=== PATIENT | female | born 1960 | race Caucasian/White ===

== ENCOUNTER → 2017-06-18 | Outpatient (CLI) | payer BC ==
[2017-06-18 17:28] LABS: T4, Free (Free Thyroxine) 1.27 ng/dL (0.78-2.19)
--- NOTE | 2017-06-19 11:00 | US ---
EXAMINATION TYPE: US thyroid st tissue head/neck DATE OF EXAM: 06/18/2017 COMPARISON: NONE CLINICAL HISTORY: E04.2 MULTINODULAR GOITER. Pt states known nodules, previous scans done at outside facility GLAND SIZE: Right Lobe: 7.4 x 2.1 x 2.5 cm Overall Parenchyma: heterogenous Left Lobe: 4.5 x 1.0 x 1.8 cm Overall Parenchyma: homogeneous Isthmus Thickness: 0.2 cm NODULES RIGHT: # of nodules measured on right: 4 1. 5.4 X 2.7 x 4.1 cm cystic nodule at the lower pole with well-defined margins;. This nodule is w ider than tall and shows no intranodular vascularity. Prior size: No prior 2. 1.8 X 0.9 x 1.4 cm hypoechoic solid nodule at the mid pole with well-defined margins; This nodule is wider than tall and shows intranodular vascularity. Prior size: No prior 3. 2.2 X 0.8 x 2.0 cm echogenic solid nodule at the mid pole with well-defined margins; This nodule is wider than tall and shows intranodular vascularity. Prior size: No prior 4. 0.9 X 0.4 x 0.7 cm hypoechoic mixed nodule at the mid pole with well-defined margins; This nodul e is wider than tall and shows intranodular vascularity. Prior size: No prior LEFT: # of nodules measured on left: 1 1. 0.6 X 0.3 x 0.6 cm isoechoic solid nodule at the lower pole with poorly defined margins; This n odule is wider than tall and shows intranodular vascularity. Prior size: No prior Bilateral neck scanned, no evidence of lymphadenopathy. Nodules bilaterally, more on right. IMPRESSION: Multinodular goiter. Large cyst also present right lobe.
== END | disposition home or self-care (01) ==
LOC: RADUSWWP 16:27
PROVIDERS: ATTEND Internal Medicine Endocrinology, Diabetes & Metabolism
DX: E04.2 Nontoxic multinodular goiter (principal)
CPT/HCPCS: 36415; 76536; 84439; 84443

== ENCOUNTER → 2017-07-17 | Outpatient (CLI) | payer BC ==
--- NOTE | 2017-07-17 13:25 | CT ---
EXAMINATION TYPE: CT soft tissue neck w con DATE OF EXAM: 07/17/2017 COMPARISON: NONE HISTORY: Multiple thyroid nodules CT DLP: 446 mGycm CONTRAST: CT scan of the neck is performed with IV Contrast, patient injected with 100 mL of Isovue 300. Contrast enhanced CT of the neck was performed from the skull base through the lung apices. AIRWAY: The supraglottic, glottic, and subglottic portions of the airway appear patent and free of mass. SALIVARY GLANDS: The submandibular and parotid glands are free of mass or inflammatory process. THYROID GLAND: There is a large cystic nodule arising from the lower pole of the right thyroid lobe a nd measures approximately 5.4 cm craniocaudal by 3.8 cm transverse by 3.5 cm AP dimension. Cystic mas s extends to the thoracic inlet. There is mild deviation of the trachea from right to left. Heterogen eously enhancing lesion is seen within the upper pole of the right thyroid lobe measuring an estimate d 1.9 x 1.6 cm. The left thyroid lobe appears unremarkable as does the isthmus. LYMPH NODES: No adenopathy seen greater than 1cm. LUNG APICES: No nodule or mass is seen. OTHER: Vascular structures are patent. No significant degenerative change of the cervical spine. N o abscess seen. IMPRESSION: Thyroid nodularity as discussed.
== END ==
LOC: RADCTMAIN 12:28
PROVIDERS: ATTEND Surgery
DX: E04.1 Nontoxic single thyroid nodule (principal)
CPT/HCPCS: 70491; Q9967

== ENCOUNTER 2017-07-22 09:50 | Day surgery (SDC) | payer BC ==
[2017-07-20 11:08] VITALS: BMI 25.6
[~2017-07-22 09:50] MED LIST: DEXAMETHASONE SOD PHOSPHATE 10 MG/ML 1 ML VIAL IV ONE; LACTATED RINGERS 1,000 ML IV SCH; LIDOCAINE 1% 20 ML VIAL (10MG/ML) FOR IV START INTRADERMA PRN; MORPHINE SULFATE 4 MG/0.8 ML SYRINGE (INJ) IV PRN; ONDANSETRON ODT 4 MG TAB PO ONE; Pre Op ABX Message 1 EACH MISC MISCELLANE ONE; SCOPOLAMINE 1.5MG/72HR PATCH TRANSDERM ONE
[2017-07-22] MEDS ORDERED: ONDANSETRON 4 MG/2 ML VIAL IVP ONE ×2 (11:13→16:26)
[2017-07-22] MEDS ORDERED: HEPARIN SODIUM,PORCINE 5,000 UNIT/ML 1 ML VIAL SQ STA (12:20)
[2017-07-22] MEDS ORDERED: ePHEDrine SULFATE/0.9% NACL/PF 50 MG/5 ML SYRINGE IV ONE (13:05)
[2017-07-22] MEDS ORDERED: SUCCINYLCHOLINE CHLORIDE 100 MG/5 ML SYR IV ONE (13:05)
[2017-07-22] MEDS ORDERED: MIDAZOLAM 2 MG/2 ML VIAL ONE (13:05)
[2017-07-22] MEDS ORDERED: LIDOCAINE 1% INJ 10MG/ML (20 ML MDV) ONE (13:05)
[2017-07-22] MEDS ORDERED: fentaNYL (PF) 50 MCG/ML 2 ML AMP ONE (13:05)
[2017-07-22] MEDS ORDERED: PHENYLEPHRINE-0.9% NACL SYG 1 MG/10 ML SYRINGE ONE (13:05)
[2017-07-22] MEDS ORDERED: PROPOFOL 10 MG/ML 20 ML VIAL IV ONE (13:05)
[2017-07-22] MEDS ORDERED: HEPARIN SODIUM,PORCINE 5,000 UNIT/ML 1 ML VIAL SQ ONE (13:14)
[2017-07-22] MEDS ORDERED: LACTATED RINGERS 1,000 ML IV ONE (14:20)
[2017-07-22] MEDS ORDERED: ONDANSETRON 4 MG/2 ML VIAL IVP PRN (15:55)
[2017-07-22] MEDS ORDERED: ACETAMINOPHEN TAB 325 MG TAB PO PRN (15:55)
[2017-07-22] MEDS ORDERED: NALOXONE 0.4 MG/ML 1 ML VIAL IV PRN (15:55)
--- NOTE | 2017-07-22 15:55 | P.OP ---
Date of Procedure: 07/22/17 Preoperative Diagnosis: Cystic lesion inferior pole of the right lobe of thyroid Postoperative Diagnosis: Cystic lesion adjacent to inferior thyroid believed to be from the thyroid, 1.9 cm nodule superior pole right lobe of thyroid Procedure(s) Performed: Right thyroid lobectomy, excision of cystic lesion inferior to thyroid, intraoperative consultation with Dr. Baxter from ENT Anesthesia: AGBE Surgeon: Farnaz Nicholson Estimated Blood Loss (ml): 10 Pathology: other (Right lobe of thyroid, cyst inferior to the thyroid) Condition: stable Disposition: PACU Indications for Procedure: Enlarging cyst right lobe of thyroid as well as 1.9 cm nodule right lobe of thyroid Operative Findings: 1.9 cm nodule superior pole of the right thyroid, cyst inferior to right thyroid Description of Procedure: Patient was taken to the operating room and following induction of general anesthesia the neck was prepped and draped in a sterile fashion. The patient was placed in beachchair position. A collar incision was made and carried into the skin and subcutaneous tissue. The platysma was identified and divided. Superior and inferior skin flaps were developed. Strap muscles were in the midline. The area of the right lobe of the thyroid was approached. There was a very large cystic lesion adjacent to the inferior pole but clearly separate from this. The lobe was able to be identified and rotated medially. The superior pole vessels were identified these were ligated and divided. The inferior pole vessels were likewise identified and ligated and divided. The lobe was rotated medially. The cystic lesion appeared to be separate from the thyroid extending towards the thoracic inlet. Intraoperative consultation with ENT was obtained and the consensus was that if this could easily be elevated and removed this should be done. Using blunt finger dissection the cystic lesion was elevated. During this portion of the procedure the cyst was ruptured , fluid was obtained from this for evaluation. The wall of the cyst was elevated and removed. The right lobe of the thyroid was again approached. Secondary to the 1.9 cm lesion at the superior pole it was felt that the lobe should be removed. The recurrent laryngeal nerve was identified and preserved. The lobe was rotated onto the trachea were several small vessels were ligated and divided. This was dissected up to the area of the isthmus the isthmus was clamped and it was divided and suture ligated. Superior and inferior parathyroids were identified and preserved. Palpation of the left lobe of the thyroid did not reveal any lesions of concern. After assured that hemostasis was attained a drain was placed in the thyroid bed on the right side. The strap muscles were closed in the midline using a 3-0 Vicryl suture. This was followed by closure of the platysma with a Vicryl suture. The skin was closed using a 4-0 Monocryl. The drain was secured using a drain stitch. Steri-Strips were applied. The patient tolerated the procedure in stable condition. All instrument and sponge counts were correct at the end of the case.
[2017-07-22] MEDS: MORPHINE SULFATE 4 MG/0.8 ML SYRINGE (INJ) IV PRN ×3 (16:08→21:10)
[2017-07-22] MEDS ORDERED: LABETALOL SYRINGE 5 MG/ML IVP ONE (16:21)
[2017-07-22] MEDS: SODIUM CHLORIDE 0.9% 1,000 ML IV SCH (17:25)
[2017-07-22] MEDS: HEPARIN SODIUM,PORCINE 5,000 UNIT/ML 1 ML VIAL SQ SCH (18:05)
[2017-07-22] MEDS: FAMOTIDINE 20 MG TAB PO SCH (21:04)
[2017-07-23] MEDS: HEPARIN SODIUM,PORCINE 5,000 UNIT/ML 1 ML VIAL SQ SCH ×2 (00:22→08:37)
[2017-07-23] MEDS: SODIUM CHLORIDE 0.9% 1,000 ML IV SCH (00:24)
[2017-07-23] MEDS: FAMOTIDINE 20 MG TAB PO SCH (08:37)
[2017-07-23 09:15] VITALS: BP 145/62; PULSE 80; RESP 19; TEMP 98
--- NOTE | 2017-07-23 09:59 | P.PN ---
Subjective Progress Note Date: 07/23/17 Postop day #1 right thyroid lobectomy as well as excision of cyst inferior to the right thyroid line incision is clean and dry Patient is tolerating diet without difficulty Patient with no complaints Objective - Vital Signs Vital signs: Vital Signs Temp 98.0 F 07/23/17 08:20 Pulse 80 07/23/17 08:20 Resp 19 07/23/17 08:20 BP 145/62 07/23/17 08:20 Pulse Ox 95 07/23/17 08:20 Intake & Output 07/22/17 07/23/17 07/23/17 18:59 06:59 18:59 Intake Total 1900 1740 Output Total 385 Balance 1515 1740 Weight 63.503 kg Intake: IV 1900 Oral 1740 Output: Urine 370 Estimated Blood Loss 15 Other: # Voids 1 - Constitutional General appearance: Present: average body habitus - Neck Details: Incision clean and dry JAY JAY drain with minimal serous drainage DC'd - Respiratory Respiratory: bilateral: CTA - Cardiovascular Rhythm: regular Heart sounds: normal: S1, S2 - Gastrointestinal General gastrointestinal: Present: soft - Psychiatric Psychiatric: Present: A&O x's 3, appropriate affect, intact judgment & insight - Labs Labs: Microbiology - Last 24 Hours (Table) 07/22/17 14:00 Gram Stain - Preliminary Cyst Wound Culture - Preliminary 07/22/17 14:00 Anaerobic Culture - Preliminary Cyst Assessment and Plan Assessment: Impression/plan: 1. Postop day #1 right thyroid resection, resection of cyst inferior pole right thyroid 2. Patient doing well Plan: 1. DC patient home 2. Follow-up with Dr. Domínguez next week as well as Dr. Ledesma I have had a discussion with the patient regarding the fact that the cyst did not appear to be contingent with the thyroid, I'm uncertain as to the etiology of the cyst and she will follow with Dr. Catrachita Ledesma regarding this when the pathology returns. I've also discussed with her that the cyst may recur although I did take the wall of it out and further recommendation will follow pathology and clinical course.
--- NOTE | 2017-07-23 10:00 | P.DS ---
Providers Attending physician: Farnaz Nicholson Consults: 07/22/17 15:58 Consult Physician Routine Consulting Provider: Priya Ledesma Consult Reason/Comments: Patient known to you Do you want consulting provider notified?: Yes Primary care physician: Farnaz Nicholson Plan - Discharge Summary Discharge Rx Participant: Yes New Discharge Prescriptions: No Action Ergocalciferol (Vitamin D2) [Vitamin D2] 50,000 unit PO PETERSON Alendronate Sodium [Fosamax] 1 tab PO WEEKLY Discharge Medication List Ergocalciferol (Vitamin D2) [Vitamin D2] 50,000 unit PO PETERSON 07/20/17 [History] Alendronate Sodium [Fosamax] 1 tab PO WEEKLY 07/22/17 [History] Follow up Appointment(s)/Referral(s): Ann-Marie Salazar MD [STAFF PHYSICIAN] - 1 Week Activity/Diet/Wound Care/Special Instructions: Do not drive until seen by Dr. Domínguez If patient notices any increased swelling in her neck or concerns to call immediately Discharge Disposition: HOME SELF-CARE
[2017-07-23] MEDS ORDERED: MORPHINE ORAL SOLN 10 MG/5 ML CUP PO PRN (10:32)
== END 2017-07-23 13:28 | disposition home or self-care (01) ==
LOC: OR 09:50 → 6PED 15:41 → OR 07-23 13:28
PROVIDERS: ATTEND Surgery
DX: E04.1 Nontoxic single thyroid nodule (principal); E21.4 Other specified disorders of parathyroid gland; F17.210 Nicotine dependence, cigarettes, uncomplicated; Z79.899 Other long term (current) drug therapy
CPT/HCPCS: 88305; 82310; 88307; 87070; 87205; 87075; 60220; J2250; J1644 ×2; J1100; J2405; J2001; J3010; J2370; J0330; J2704; J2270

== ENCOUNTER → 2017-07-31 | Outpatient (CLI) | payer BC ==
[2017-07-31 14:35] LABS: Albumin 4.3 g/dL (3.5-5.0); Anion Gap 12 mmol/L; Carbon Dioxide 25 mmol/L (22-30); Chloride 103 mmol/L (98-107); Glucose 167 mg/dL (74-99); Potassium 4.2 mmol/L (3.5-5.1); Sodium 140 mmol/L (137-145); Total Protein 6.6 g/dL (6.3-8.2)
[2017-07-31 14:36] LABS: ALT 25 U/L (9-52); AST 20 U/L (14-36); Alkaline Phosphatase 99 U/L (38-126); Blood Urea Nitrogen 10 mg/dL (7-17); Calcium 9.4 mg/dL (8.4-10.2); Total Bilirubin 0.4 mg/dL (0.2-1.3)
== END | disposition home or self-care (01) ==
LOC: LABWHC1 13:48
PROVIDERS: ATTEND Internal Medicine Endocrinology, Diabetes & Metabolism
DX: E04.2 Nontoxic multinodular goiter (principal)
CPT/HCPCS: 36415; 80053; 83970; 84443

== ENCOUNTER → 2017-11-13 | Outpatient (CLI) | payer BC ==
[2017-11-13 16:48] LABS: T4, Free (Free Thyroxine) 1.02 ng/dL (0.78-2.19)
--- NOTE | 2017-11-13 18:03 | US ---
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 Right thyroidectomy 07/15 GLAND SIZE: Right Lobe: Surgically absent Left Lobe: 4.5 x 1.5 x 2.0 cm Overall Parenchyma: homogeneous NODULES RIGHT: # of nodules measured on right: 0 LEFT: # of nodules measured on left: 1 1. 0.6 X 0.4 x 0.5 cm isoechoic solid nodule at the lower pole with poorly defined margins; . This nodule is wider than tall and shows intranodular vascularity. Prior size: 0.6 x 0.3 x 0.6 cm ISTHMUS: # of nodules measured in the isthmus: Bilateral neck scanned, no evidence of lymphadenopathy. IMPRESSION: Stable small nodule in the left thyroid lobe. No adverse change. No dominant thyroid mass. Right thyr oid lobectomy noted.
== END | disposition home or self-care (01) ==
LOC: RADUSWWP 16:04
PROVIDERS: ATTEND Internal Medicine Endocrinology, Diabetes & Metabolism
DX: E04.1 Nontoxic single thyroid nodule (principal); E21.4 Other specified disorders of parathyroid gland; Z98.890 Other specified postprocedural states
CPT/HCPCS: 36415; 76536; 83970; 84439; 84443

== ENCOUNTER → 2018-01-08 | Outpatient (CLI) | payer BC ==
--- NOTE | 2018-01-11 08:46 | MM ---
Reason for exam: screening (asymptomatic). Last mammogram was performed 12 years ago. History: Patient is postmenopausal. Family history of premenopausal breast cancer in mother and breast cancer in paternal grandmother. Physical Findings: A clinical breast exam by your physician is recommended on an annual basis and results should be correlated with mammographic findings. MG 3D Screening Mammo W/Cad Bilateral CC and MLO view(s) were taken. Prior study comparison: October 16, 2016, mammogram, performed at [facility]. October 09, 2015, mammogram, performed at [facility]. The breast tissue is heterogeneously dense. This may lower the sensitivity of mammography. No significant changes when compared with prior studies. ASSESSMENT: Benign, BI-RAD 2 RECOMMENDATION: Routine screening mammogram of both breasts in 1 year.
== END | disposition home or self-care (01) ==
LOC: RADMAMWWP 06:52
PROVIDERS: ATTEND Family Medicine
DX: Z12.31 Encounter for screening mammogram for malignant neoplasm of breast (principal)
CPT/HCPCS: 77063; 77067

== ENCOUNTER → 2018-03-03 | Outpatient (CLI) | payer BC ==
[2018-03-03 07:56] LABS: Basophils # (A) 0.1 k/uL (0-0.2); Basophils % (A) 2 %; Eosinophils # (A) 0.1 k/uL (0-0.7); Eosinophils % (A) 2 %; HCT 45.6 % (34.0-46.0); HGB 14.4 gm/dL (11.4-16.0); Lymphocytes # (A) 1.6 k/uL (1.0-4.8); Lymphocytes % (A) 23 %; MCHC 31.5 g/dL (31.0-37.0); MCV 91.8 fL (80.0-100.0); Mean Platelet Volume 6.6; Monocytes # (A) 0.4 k/uL (0-1.0); Monocytes % (A) 6 %; Neutrophils # (A) 4.5 k/uL (1.3-7.7); Neutrophils % (A) 65 %; Platelet Count 297 k/uL (150-450); RBC 4.97 m/uL (3.80-5.40); RDW 12.9 % (11.5-15.5)
[2018-03-03 08:08] LABS: ALT 21 U/L (9-52); AST 20 U/L (14-36); Albumin 4.1 g/dL (3.5-5.0); Alkaline Phosphatase 90 U/L (38-126); Anion Gap 4 mmol/L; Blood Urea Nitrogen 12 mg/dL (7-17); Calcium 9.2 mg/dL (8.4-10.2); Carbon Dioxide 30 mmol/L (22-30); Chloride 107 mmol/L (98-107); Cholesterol 272 mg/dL (<200); Glucose 110 mg/dL (74-99); HDL Cholesterol 50 mg/dL (40-60); LDL Cholesterol,Calculated 192 mg/dL (0-99); Magnesium 2.2 mg/dL (1.6-2.3); Potassium 4.5 mmol/L (3.5-5.1); Sodium 141 mmol/L (137-145); Total Bilirubin 0.6 mg/dL (0.2-1.3); Total Protein 6.7 g/dL (6.3-8.2); Triglycerides 150 mg/dL (<150)
--- NOTE | 2018-03-03 11:49 | BD ---
EXAMINATION TYPE: Axial Bone Density DATE OF EXAM: 03/03/2018 COMPARISON: 01/13/2006 CLINICAL HISTORY: Height: 62 IN Weight: 146 LBS FRAX RISK QUESTIONS: Secondary Osteoporosis: Current Tobacco Use: YES RISK FACTORS HISTORY OF: Family History of Osteoporosis: YES MOTHER Active: YES Diet low in dairy products/other sources of calcium: YES Postmenopausal woman: AGE 48 MEDICATIONS: Additional Medications: NONE EXAM MEASUREMENTS: Bone mineral densitometry was performed using the [employer] System. Bone mineral density as measured about the Lumbar spine is: ----- L1-L4(G/cm2): 1.010 T Score Values are as follows: ----- L2: -1.7 ----- L3: -1.0 ----- L4: -1.4 ----- L1-L4: -1.4 Bone mineral density has: Decreased -17.4% since study of: 01/13/2006 Bone mineral density about the R hip (g/cm2): 0.709 Bone mineral density about the L hip (g/cm2): 0.745 T Score values are as follows: -----R Neck: -2.4 -----L Neck: -2.1 -----R Total: -2.3 -----L Total: -2.0 Bone mineral density has: Decreased -14.1% since study of: 01/13/2006 IMPRESSION: Osteopenia about the lumbar spine and bilateral femora. NOTE: T-SCORE=SD OF THE YOUNG ADULT MEAN.
[2018-03-03 17:01] LABS: Hemoglobin A1C 5.8 % (4.0-6.0)
== END ==
LOC: RADBDWWP 07:35
PROVIDERS: ATTEND Family Medicine
DX: M85.852 Other specified disorders of bone density and structure, left thigh (principal); M85.851 Other specified disorders of bone density and structure, right thigh; M85.88 Other specified disorders of bone density and structure, other site; Z78.0 Asymptomatic menopausal state
CPT/HCPCS: 36415; 77080; 80053; 80061; 82306; 83036; 83735; 84443; 85025

== ENCOUNTER → 2018-07-15 | Outpatient (CLI) | payer BC | LOC: LABWHC1 09:56 | PROVIDERS: ATTEND Internal Medicine Endocrinology, Diabetes & Metabolism | DX: E03.8 Other specified hypothyroidism (principal) | CPT/HCPCS: 36415; 82306; 84443 ==

== ENCOUNTER → 2019-01-26 | Outpatient (CLI) | payer BC ==
--- NOTE | 2019-01-26 15:50 | US ---
EXAMINATION TYPE: US thyroid st tissue head/neck DATE OF EXAM: 01/26/2019 COMPARISON: NONE CLINICAL HISTORY: E03.8 HYPOTHYROIDISM. Hypothyroidism, right thyroidectomy GLAND SIZE: Right Lobe: Surgically absent Left Lobe: 4.5 x 2.0 x 2.1 cm Overall Parenchyma: homogeneous NODULES LEFT: # of nodules measured on left: 1 1. 0.5 X 0.4 x 0.5 cm isoechoic solid nodule at the lower pole with poorly defined margins; . This nodule is wider than tall and shows intranodular vascularity. Prior size: 0.6 x 0.4 x 0.5 cm ISTHMUS: # of nodules measured in the isthmus: 0 Bilateral neck scanned, no evidence of lymphadenopathy. IMPRESSION: 1. Surgical absence of the right thyroid lobe. 2. Overall stable size of the subcentimeter left thyroid nodule. No new nodules seen.
== END | disposition home or self-care (01) ==
LOC: RADUSWWP 15:11
PROVIDERS: ATTEND Internal Medicine Endocrinology, Diabetes & Metabolism
DX: E04.1 Nontoxic single thyroid nodule (principal); E55.9 Vitamin D deficiency, unspecified; Z90.49 Acquired absence of other specified parts of digestive tract
CPT/HCPCS: 36415; 76536; 82306; 84443

== ENCOUNTER → 2019-05-05 | Outpatient (CLI) | payer OTHER | END | disposition home or self-care (01) | LOC: LABWHC1 13:27 | PROVIDERS: ATTEND Internal Medicine Endocrinology, Diabetes & Metabolism | DX: E55.9 Vitamin D deficiency, unspecified (principal); E03.8 Other specified hypothyroidism | CPT/HCPCS: 36415; 82306; 84443 ==

== ENCOUNTER → 2020-05-25 | Outpatient (CLI) | payer OTHER ==
[2020-05-25 15:48] LABS: T4, Free (Free Thyroxine) 1.63 ng/dL (0.78-2.19)
--- NOTE | 2020-05-25 16:01 | US ---
EXAMINATION TYPE: US thyroid st tissue head/neck DATE OF EXAM: 05/25/2020 COMPARISON: US CLINICAL HISTORY: E04.2 MULTINODULAR GOITER. Right thyroidectomy GLAND SIZE: Right Lobe: surgically removed Left Lobe: 4.5 x 1.9 x 1.4 cm Overall Parenchyma: homogeneous Isthmus Thickness: 0.2cm NODULES Right neck imaged post thyroidectomy: no thyroid nodules seen LEFT: # of nodules measured on left: 2 largest of multiple 1. 0.5 X 0.4 x 0.3 cm spongiform, isoechoic nodule at inferior pole, which is wider than tall, with ill-defined margins, without echogenic foci. Prior size: 0.5 x 0.5 x 0.4 cm 2. 0.3 X 0.2 x 0.2 cm cystic, anechoic nodule at mid pole, which is wide as is tall, with smooth ma rgins, without echogenic foci. Prior size: no previous ISTHMUS: # of nodules measured in the isthmus: 0 Bilateral neck scanned: no evidence of lymphadenopathy. IMPRESSION: Subcentimeter nodules left lobe thyroid. No recurrent masses within the right thyroid bed are evident . 2017 ACR TI-RADS LEVEL: TR-RADS 3 - Mildly Suspicious: Follow if > 1.5 cm, FNA if > 2.5 cm *Highest TI-RADS level nodule reported
== END | disposition home or self-care (01) ==
LOC: RADUSWWP 14:02
PROVIDERS: ATTEND Internal Medicine Endocrinology, Diabetes & Metabolism
DX: E04.2 Nontoxic multinodular goiter (principal); E55.9 Vitamin D deficiency, unspecified
CPT/HCPCS: 36415; 76536; 82306; 84439; 84443

== ENCOUNTER → 2022-03-10 | Outpatient (CLI) | payer BC ==
--- NOTE | 2022-03-11 08:16 | US ---
EXAMINATION TYPE: US thyroid st tissue head/neck DATE OF EXAM: 03/10/2022 COMPARISON: NONE CLINICAL HISTORY: E04.2 NONTOXIC MULTINODULAR GOITER. Thyroid nodules right side removed. GLAND SIZE: Right Lobe: Surgically absent Left Lobe: 4.4 x 1.2 x 1.8 cm Overall Parenchyma: homogeneous Isthmus Thickness: .2 cm NODULES RIGHT: # of nodules measured on right: 0 LEFT: # of nodules measured on left: 0 ISTHMUS: # of nodules measured in the isthmus: 0 Bilateral neck scanned, no evidence of lymphadenopathy. IMPRESSION: Unremarkable study.
== END | disposition home or self-care (01) ==
LOC: RADUSWWP 16:15
PROVIDERS: ATTEND Internal Medicine Endocrinology, Diabetes & Metabolism
DX: E04.2 Nontoxic multinodular goiter (principal); E03.8 Other specified hypothyroidism; E55.9 Vitamin D deficiency, unspecified
CPT/HCPCS: 76536; 82306; 84443

== ENCOUNTER → 2023-04-30 | Outpatient (CLI) | payer BC ==
[2023-04-30 15:43] LABS: T4, Free (Free Thyroxine) 1.73 ng/dL (0.80-1.80)
== END | disposition home or self-care (01) ==
LOC: LABWHC1 09:43
PROVIDERS: ATTEND Internal Medicine Endocrinology, Diabetes & Metabolism
DX: E04.2 Nontoxic multinodular goiter (principal); E55.9 Vitamin D deficiency, unspecified
CPT/HCPCS: 36415; 82306; 84439; 84443

== ENCOUNTER → 2024-08-03 | Outpatient (CLI) | payer MEDICARE, BC ==
--- NOTE | 2024-08-03 15:48 | US ---
EXAMINATION TYPE: US thyroid st tissue head/neck DATE OF EXAM: 08/03/2024 COMPARISON: Multiple thyroid ultrasounds with most recent 03/10/2022, CT soft tissue neck 07/17/2017 CLINICAL INDICATION: Female, 63 years old with history of E04.2 MULTINODULAR GOITER; Right thyroid re moved. TECHNIQUE: Grayscale and color Doppler imaging of the thyroid gland. FINDINGS: GLAND SIZE: Right Lobe: Surgically absent Left Lobe: 4.6 x 2.0 x 1.5 cm Overall Parenchyma: homogeneous Isthmus Thickness: 0.2 cm NODULES RIGHT: Surgically Absent LEFT: # of nodules measured on left: 0 ISTHMUS: # of nodules measured in the isthmus: 0 Bilateral neck scanned, no evidence of lymphadenopathy. Right thyroid lobe is surgically absent without suspicious nodularity within the surgical bed. The re maining thyroid gland is unremarkable without discrete nodule. IMPRESSION: Right thyroid lobe is surgically absent without suspicious nodularity within the surgical bed. The re maining thyroid gland is unremarkable without discrete nodule. [facility], , 08/03/2024 3:46 PM
[2024-08-03 19:16] LABS: Chol/HDL Ratio 4.58 Ratio; LDL Cholesterol,Calculated 207.1 mg/dL (0.0-131.0); T4, Free (Free Thyroxine) 1.42 ng/dL (0.80-1.80)
== END | disposition home or self-care (01) ==
LOC: RADUSWWP 14:29
PROVIDERS: ATTEND Internal Medicine Endocrinology, Diabetes & Metabolism
DX: E04.2 Nontoxic multinodular goiter (principal); R73.03 Prediabetes; E78.2 Mixed hyperlipidemia; Z90.89 Acquired absence of other organs
CPT/HCPCS: 76536; 80061; 83036; 84439; 84443